=== PATIENT | female | born 1975 | race Caucasian/White ===

== ENCOUNTER 2016-09-08 07:36 | Day surgery (SDC) | payer OTHER, BC ==
--- NOTE | 2016-09-07 18:44 | HP ---
OSBALDO PARNELL [id number] DATE OF ADMISSION: September 08, 2016 PREOPERATIVE DIAGNOSES: 1. Menorrhagia. 2. Desires permanent sterilization. PROCEDURES PLANNED: 1. Laparoscopic bilateral tubal ligation. 2. Hysteroscopy. 3. Endometrial ablation. HISTORY OF PRESENT ILLNESS: Patient is a 41-year-old 3, para 3, with history of prolonged and heavy periods. Patient was initially seen in March of 2016. At that point patient stated that she had had heavy periods all her life. She had been on oral contraceptives much of her life for heavy periods. Last year she had tried Mirena IUD. However, continued to have many problems including heavy periods and pain so the Mirena was removed. Patient was subsequently started on Ortho Micronor. However, subsequent to this, patient reports increase in the vaginal bleeding usually having heavy bleeding three weeks out of the month and also passing heavy clots. An endometrial biopsy was subsequently performed and this showed benign pathology. An ultrasound was performed which showed a uterus measuring 9.5 x 4.6 x 4.8 cm with homogenous echotexture with no myometrial masses. However, there is some thickening of the endometrium which measures up to 2.2 cm. There are no adnexal masses. Subsequent to discussion of these results, it was therefore recommended for patient to have endometrial ablation. Patient also desires permanent sterilization. PAST MEDICAL HISTORY: 1. Patient has had three prior normal vaginal deliveries. 2. She had had recent sexually transmitted disease screen which was negative. 3. Patient has a history of depression for which she is on Wellbutrin. She is also on Lamictal as well as sertraline. PAST SURGICAL HISTORY: Negative. ALLERGIES: PATIENT STATES THAT SHE IS ALLERGIC TO IODINE. MEDICATIONS: Currently include: 1. Lamictal. 2. Wellbutrin. 3. Sertraline. PHYSICAL EXAM: GENERAL: Patient is alert and appropriate, in no apparent distress. HEART: Regular rate and rhythm. LUNGS: Clear to auscultation bilaterally. ABDOMEN: Nontender, nondistended with no masses. PELVIC: Cervix is closed and normal. The uterus is mobile and anteverted, nontender. There are no adnexal masses. There is no abnormal discharge or lesions. ASSESSMENT AND PLAN: This is a 41-year-old 3, para 3, who desires permanent sterilization. We will perform a laparoscopic bilateral tubal ligation with Filshie clips. The procedure has been reviewed including risk of bleeding, infection, or injury to bowel, bladder or other organs. The risks of sterilization including risk of , ectopic and regret have been discussed. Patient also has had prolonged vaginal bleeding with her periods and she has thus far failed a trial of Mirena IUD and oral contraceptives. Recommend hysteroscopy with endometrial ablation. The procedure and risks have also been reviewed. Preoperative instructions and postoperative expectations have been reviewed. Patient will be given a prescription for Percocet and Motrin. Patient's preoperative laboratory studies show normal electrolytes with a hemoglobin of 13.6, platelet of 257 and WBC of 6.8. HCG is negative.
[2016-09-08] MEDS ORDERED: CEFAZOLIN SODIUM 2 GRAM DUPLEX 2 G in Premix (D5W) 50 ml 1 EACH IV PRN (07:38)
[2016-09-08] MEDS ORDERED: LIDOCAINE 1% 2 ML VIAL ID PRN (07:38)
[2016-09-08] MEDS ORDERED: LACTATED RINGERS 1,000 ML IV SCH ×3 (07:38→11:56)
[2016-09-08] MEDS ORDERED: IV START KIT ONE (07:40)
[2016-09-08] MEDS ORDERED: CEFAZOLIN SODIUM 2 GRAM PREMIX 100 ML IV ONE (07:41)
[2016-09-08] MEDS ORDERED: LIDOCAINE 2% (PRES FREE) 5 ML VIAL ONE (08:20)
[2016-09-08] MEDS ORDERED: ROCURONIUM BROMIDE 10 MG/ML DOSE IV ONE (08:20)
[2016-09-08] MEDS ORDERED: MIDAZOLAM HCL 5 MG/5 ML VIAL ONE (08:20)
[2016-09-08] MEDS ORDERED: FAMOTIDINE 10 MG/ML 2ML VIAL ONE (08:20)
[2016-09-08] MEDS ORDERED: FENTANYL 5 ML ONE (08:20)
[2016-09-08] MEDS ORDERED: PROPOFOL 0 ML IV ONE (08:20)
[2016-09-08] MEDS ORDERED: ONDANSETRON 4 MG/2ML 2 ML VIAL ONE ×2 (08:20→12:53)
[2016-09-08] MEDS ORDERED: DEXAMETHASONE SOD PHOS 4 MG/1 ML VIAL ONE (08:20)
[2016-09-08] MEDS ORDERED: KETOROLAC TROMETHAMINE 30 MG/ML 1 ML VIAL ONE (10:15)
[2016-09-08] MEDS ORDERED: ONDANSETRON 4 MG/2ML 2 ML VIAL IV PRN ×2 (10:23→11:56)
[2016-09-08] MEDS ORDERED: SODIUM CHLORIDE 0.9% FLUSH 10 ML ONE (10:23)
[2016-09-08] MEDS ORDERED: PROMETHAZINE HCL 25 MG/ML VIAL IM PRN (10:23)
[2016-09-08] MEDS ORDERED: LIDOCAINE 1%/EPI (MULTI DOSE) 20 ML VIAL ONE (10:23)
[2016-09-08] MEDS ORDERED: FENTANYL 100 MCG/2 ML VIAL ONE (11:29)
[2016-09-08] MEDS: FENTANYL 100 MCG/2 ML VIAL IV PRN ×2 (11:31→11:37)
[2016-09-08] MEDS ORDERED: HYDROMORPHONE HCL 1 MG/ML SYRINGE ONE (11:48)
[2016-09-08] MEDS: HYDROMORPHONE HCL 1 MG/ML SYRINGE IV PRN ×4 (11:50→12:43)
[2016-09-08] MEDS ORDERED: DIPHENHYDRAMINE HCL 50 MG/1 ML VIAL IV PRN (11:56)
[2016-09-08] MEDS ORDERED: OXYCODONE/ACETAMINOPHEN 5/325 MG TABLET PO PRN (11:56)
[2016-09-08] MEDS ORDERED: LACTATED RINGERS 1,000 ML ONE (12:55)
[2016-09-08] MEDS ORDERED: OXYCODONE/ACETAMINOPHEN 5/325 MG TABLET ONE (13:25)
--- NOTE | 2016-09-08 15:02 | OP ---
OSBALDO PARNELL [id number] DATE OF OPERATION: September 08, 2016 PREOPERATIVE DIAGNOSES: 1. Menorrhagia. 2. Desires permanent sterilization. POST OPERATIVE DIAGNOSIS: 1. Menorrhagia. 2. Desires permanent sterilization. 3. Uterine polyp. PROCEDURES PERFORMED: 1. LAPAROSCOPIC BILATERAL TUBAL LIGATION WITH FILSHIE CLIPS. 2. HYSTEROSCOPY. 3. DILATE AND CURETTAGE. 4. ENDOMETRIAL ABLATION. SURGEON: Jamal Rashid M.D. ANESTHESIA: General. ESTIMATED BLOOD LOSS: 50 mL. COMPLICATIONS: None. OPERATIVE FINDINGS: include: 1. Fundal endometrial polyp. 2. Grossly normal ovaries and tubes bilaterally. OPERATIVE COURSE: The patient was taken to the operating room and placed under general anesthesia. The patient was placed in lithotomy and prepped and draped in a sterile fashion. The bladder was then emptied with a straight catheter and a uterine manipulator was then placed. Attention was then turned to the abdomen where Lidocaine with epinephrine was injected at the subumbilical area and suprapubic area. An 11 mm incision was made vertically at the umbilicus and the abdomen was then tented and a Veress needle was then placed. Intraabdominal placement was confirmed with saline syringe, and an 11 mm port was then placed easily under direct visualization and the abdomen had been insufflated to 15 mmHg at insertion of this trocar. The patient was then placed in Trendelenburg, and an 8 mm incision was made at the midline suprapubic area and an 8 mm port was then placed under direct visualization. Ovaries and tubes were examined and found to be normal. A Filshie clip was then placed on the right tube in the mid isthmic area and also on the left tube in the mid isthmic area. A survey of the pelvis and the abdomen was satisfactory. All instruments were then removed and the abdomen was then desufflated. The umbilical incision was then closed with #0 Vicryl and #-0 Monocryl and the suprapubic incision was then closed with #3-0 Monocryl. Attention was then paid to the pelvis. The uterine manipulator was then removed, and a bivalve speculum was then placed. The cervix was easily dilated and the hysteroscope was then placed. Upon entry into the uterine cavity, it was noted to have a polyp at the fundal left aspect of the uterus. The hysteroscope was then removed and using a gentle sharp curettage, this polyp was able to be curetted out. Subsequently, the uterus was then measured to be 8 cm in total length with 4 cm of cervical length. The NovaSure instrument was then placed with a cavity length of 4 cm and width of 4 cm as well. The cavity assessment was then passed and the NovaSure initiated. The length of ablation was 1 minute and 50 seconds. Subsequently, the instrument was then removed easily and second look hysteroscopy was performed. The second look showed apparently adequate endometrial ablation, and the polyp is no longer there. All instruments were then removed. The tenaculum site was then cauterized. Patient was then recovered from anesthesia and taken to the recovery room in stable condition.
[2016-09-08] MEDS ORDERED: IBUPROFEN 800 MG TABLET PO PRN (17:00)
[2016-09-08] MEDS ORDERED: KETOROLAC TROMETHAMINE 30 MG/ML 1 ML VIAL IV PRN (17:00)
--- NOTE | 2016-09-12 13:26 | SURGPATH ---
[facility] [address] [place] [id number] Patient Name: OSBALDO PARNELL MR#: [id number] : 1975 Gender: F Specimen #: [id number] Collected: 09/08/2016 Received: 09/11/2016 Reported: 09/12/2016 Submitting Phys: RIMMA RENAE Copy To Phys: GARRETT BUCKLEY [facility] Clinical History / Pre-Operative Diagnosis: Menorrhagia Specimen Source / Surgical Procedure Performed: Endometrial curetting Interpretation: ENDOMETRIUM, CURETTING: - BENIGN ENDOMETRIAL POLYP Electronically Signed Out Rudolph Bergeron M.D. Gross Description: The specimen is received in formalin labeled with the patient's name and "endometrial curetting". The specimen consists of a 2.0 x 1.5 x 0.5 cm aggregate of red soft tissue or clotted blood. Submitted in toto in one cassette. SHIV Bah Microscopic Description: A slide contains fragments of endometrium some of which have proliferative features that lack architectural and cytologic atypia. One fragment has features of benign endometrial polyp. 1: 25915 N84.0
== END 2016-09-08 15:00 | disposition home or self-care (01) ==
LOC: SDC 07:36
PROVIDERS: ATTEND Obstetrics & Gynecology
PROC: 0U5B8ZZ Destruction of Endometrium, Via Natural or Artificial Opening Endoscopic (ICD-10-PCS; principal; 2016-09-08)
PROC: 0UL74CZ Occlusion of Bilateral Fallopian Tubes with Extraluminal Device, Percutaneous Endoscopic Approach (ICD-10-PCS; 2016-09-08)
DX: N92.0 Excessive and frequent menstruation with regular cycle (principal); N84.0 Polyp of corpus uteri; Z30.2 Encounter for sterilization; F32.9 Major depressive disorder, single episode, unspecified; Z88.9 Allergy status to unspecified drugs, medicaments and biological substances